=== PATIENT | male | born 1945 | race Caucasian/White ===

== ENCOUNTER 2017-05-23 22:31 | Emergency (ER) | payer OTHER, MEDICARE ==
--- NOTE | 2017-05-23 23:00 | EDPHY ---
H & P Stated Complaint: fell down stairs + loc, mutiple injury, on blood thinners HPI/ROS: HPI CHIEF COMPLAINT: Fall down stairs, on Xarelto, positive LOC, limited trauma HISTORY OF PRESENT ILLNESS: This patient very pleasant 71-year-old male, significant past medical history for AFib on Xarelto, hypertension, diabetes and obesity he presents emergency room after he fell down his stairs. He states that he had 2 martinis this evening he was going to bed his was handing him his medications through the railing of the stairs he bent over to pick the medications up any fell forward falling down 10 stairs. Carpeted would stairs. Landed at the bottom of tile floor. Positive LOC per he had head strike. He complains of a frontal headache and right lateral neck pain. Additionally left wrist pain. No other areas of injury. He denies chest pain shortness of breath. He denies abdominal pain. Denies lower back pain. Past Medical History: AFib on Xarelto, hypertension, obesity Past Surgical History: No recent surgery Social History: Denies daily use drugs alcohol tobacco products, had 2 martinis. Family History: Noncontributory ROS REVIEW OF SYSTEMS: A comprehensive 10 point review of systems is otherwise negative aside from elements mentioned in the history of present illness. Exam Constitutional triage nursing summary reviewed, vital signs reviewed, awake/ alert. Vital signs noted. Error in the initial pulse ox of 30%. Eyes head/neck: Abrasions to the left forehead, left cheek, no significant hematoma. In cervical collar: No midline cervical spine pain. No step-offs. No crepitus. Mild tenderness palpation right lateral neck. normal conjunctivae and sclera, EOMI, PERRLA. HENT oropharynx: This is a very small 1 cm intraoral upper left-sided lip laceration. normal inspection, atraumatic, moist mucus membranes, no epistaxis , neck supple/ no meningismus, no raccoon eyes. Respiratory clear to auscultation bilaterally, normal breath sounds, no respiratory distress, no wheezing. Cardiovascular rate normal, regular rhythm, no murmur, no edema, distal pulses normal. Gastrointestinal soft, non-tender, no rebound, no guarding, normal bowel sounds, no distension, no pulsatile mass. Genitourinary no CVA tenderness. Musculoskeletal no midline vertebral tenderness, full range of motion, no calf swelling, no tenderness of extremities, no meningismus, good pulses, neurovascularly intact. Nontender to palpation left lateral wrist ulnar side. Neurovascular intact. Skin abrasions to the left anterior leg, pink, warm, & dry, no rash, skin atraumatic. Neurologic awake, alert and oriented x 3, AAOx3, moves all 4 extremities equally, motor intact, sensory intact, CN II-XII intact, normal cerebellar, normal vision, normal speech. Psychiatric normal mood/affect. Heme/Lymph/Immune no lymphadenopathy. Differential Diagnosis: Includes but is not limited to in a particular order, intracranial bleed, subdural, skull fracture, cervical spine injury, multiple contusions, wrist sprain, wrist contusion, wrist fracture, alcohol intoxication Medical Decision Making: Plan for this patient CT head and CT cervical spine for trauma. Chest x-ray. Left wrist x-ray. Check basic blood work including alcohol level. EKG. Troponin. Re-evaluation: ED CT scan head without contrast and cervical spine without contrast for trauma on Xarelto are negative for acute traumatic injury. Chest x-ray two view negative for acute cardiopulmonary disease. Left wrist x-ray. This shows a triquetral fracture. 1214: This patient's upper lip intraorally has a very small less than 1 cm lip laceration. It does not require any suture repair. I did go over patient's CT scan results and x-rays with the patient. He understands to have the wrist fracture followed up with Orthopedics. He has been placed in a sugar-tong splint for comfort. Additionally I did give him his return precautions understands return emergency room if there is any worsening symptoms includes worsening headache, vomiting questions or concerns. EKG interpretation by me on record in [employer] system. Impression time of EKG 0004 this is AFib rate of 84. Otherwise unremarkable no acute ischemia. Similar to previous EKG dated 02/07/2016. Serum alcohol level noted to be 192. 0111: Patient ambulated well throughout the emergency room without difficulty. Stable gait. He is requesting be discharged home. Splint placed left wrist. Understands follow-up with Orthopedics for this. Return emergency if any worsening symptoms questions concerns he understands. Source: Patient - Personal History Current Tetanus Diphtheria and Acellular Pertussis (TDAP): Yes Tetanus Vaccine Date: < 10 years - Medical/Surgical History Hx Asthma: No Hx Chronic Respiratory Disease: No Hx Diabetes: Yes Hx Cardiac Disease: Yes Hx Renal Disease: No Hx Cirrhosis: No Hx Alcoholism: No Hx HIV/AIDS: No Hx Splenectomy or Spleen Trauma: No Other PMH: AFIB,HTN, DM, tendon repair, neck pain - Social History Smoking Status: Former smoker Constitutional: Initial Vital Signs Temperature (C) 36.5 C 05/23/17 22:41 Heart Rate 77 05/23/17 22:41 Respiratory Rate 20 05/23/17 22:41 Blood Pressure 141/85 H 05/23/17 22:41 O2 Sat (%) 30 L 05/23/17 22:41 O2 Delivery Mode Nasal Cannula O2 (L/minute) 2 Allergies/Adverse Reactions: No Known Allergies Allergy (Verified 05/23/17 22:41) Home Medications: Medication Instructions Recorded Ezetimibe/Simvastatin [Vytorin 1 each PO HS 04/17/11 10-20 mg Tablet] Losartan/Hydrochlorothiazide 1 each PO DAILY 04/17/11 [Losartan-Hctz 100-25 mg Tab] Potassium Cl [Klor-Con 10 meq (RX)] 10 meq PO DAILY 04/17/11 Rivaroxaban [Xarelto 10mg (*)] 20 mg PO HS 07/27/13 ALISKIREN HEMIFUMARATE [Tekturna 300 mg PO DAILY 02/06/16 300 mg] Calcium Carbonate [Tums 500MG (*)] 1,500 mg PO DAILY 02/06/16 Canagliflozin [Invokana] 100 mg PO DAILY 02/06/16 Finasteride [Proscar 5 MG (*)] 5 mg PO HS 02/06/16 Herbals/Supplements -Info Only 1 ea PO DAILY 02/06/16 Multivitamins [Multivitamin (*)] 1 each PO DAILY 02/06/16 Omeprazole [Prilosec 20 mg] 20 mg PO DAILY 02/06/16 amLODIPine BESYLATE [Norvasc 5 mg 5 mg PO HS 02/06/16 (*)] Insulin Glargine [Lantus 100 50 units SC HS 02/07/16 UNITS/ML (*)] Insulin Glargine [Lantus 100 50 units SC HS #0 ml 02/07/16 UNITS/ML (*)] Insulin Lispro [Humalog Kwikpen 9 - 12 unit SQ TIDMEAL 02/07/16 U-100] Medical Decision Making - Diagnostics Imaging Results: Imaging Impressions Cervical Spine CT 05/23/17 23:06 Impression: 1. No acute posttraumatic findings. If there is persistent pain or neurologic deficit, consider MRI and/or flexion and extension views if clinically indicated. 2. Multilevel degenerative change as above, with spondylolisthesis and moderate to severe spinal canal narrowing from C4 through C7. Findings discussed with Luis Menchaca MD 05/23/2017 at 23:51. Chest X-Ray 05/23/17 23:06 Impression: 1. No acute posttraumatic findings 2. Cardiomegaly without failure. Head CT 05/23/17 23:06 impression: 1. Minimal subcutaneous emphysema anterior to the maxilla, suggesting laceration , with no acute intracranial findings. 2. Diffuse cerebral atrophy with periventricular and subcortical low attenuation consistent with chronic microvascular ischemic gliosis. 3. Additional findings as above. Findings discussed with Luis Menchaca MD 05/23/2017 at 23:51. Wrist X-Ray 05/23/17 23:06 Impression: 1. Triquetral avulsion fracture. 2. Degenerative change and erosions as above. Findings discussed with Anny de oliveira for Luis Menchaca MD 2016 at 0:06. - Data Points Laboratory Results: Laboratory Results 05/23/17 23:13 05/23/17 23:13 05/23/17 05/23/17 05/23/17 23:13 23:13 23:13 WBC 8.47 10^3/uL 10^3/uL (3.80-9.50) RBC 5.29 10^6/uL 10^6/uL (4.40-6.38) Hgb 18.1 g/dL H g/dL (13.7-17.5) Hct 49.3 % % (40.0-51.0) MCV 93.2 fL fL (81.5-99.8) MCH 34.2 pg H pg (27.9-34.1) MCHC 36.7 g/dL g/dL (32.4-36.7) RDW 13.2 % % (11.5-15.2) Plt Count 194 10^3/uL 10^3/uL (150-400) MPV 10.1 fL fL (8.7-11.7) Neut % (Auto) 51.7 % % (39.3-74.2) Lymph % (Auto) 37.0 % % (15.0-45.0) [place] % (Auto) 9.0 % % (4.5-13.0) Eos % (Auto) 1.4 % % (0.6-7.6) Baso % (Auto) 0.4 % % (0.3-1.7) Nucleat RBC Rel Count 0.0 % % (0.0-0.2) Absolute Neuts (auto) 4.39 10^3/uL 10^3/uL (1.70-6.50) Absolute Lymphs (auto) 3.13 10^3/uL H 10^3/uL (1.00-3.00) Absolute Monos (auto) 0.76 10^3/uL 10^3/uL (0.30-0.80) Absolute Eos (auto) 0.12 10^3/uL 10^3/uL (0.03-0.40) Absolute Basos (auto) 0.03 10^3/uL 10^3/uL (0.02-0.10) Absolute Nucleated RBC 0.00 10^3/uL 10^3/uL (0-0.01) Immature Gran % 0.5 % % (0.0-1.1) Immature Gran # 0.04 10^3/uL 10^3/uL (0.00-0.10) PT 14.1 SEC SEC (12.0-15.0) INR 1.10 (0.83-1.16) APTT 29.4 SEC SEC (23.0-38.0) Sodium 140 mEq/L mEq/L (134-144) Potassium 3.6 mEq/L mEq/L (3.5-5.2) Chloride 99 mEq/L mEq/L (97-110) Carbon Dioxide 24 mEq/l mEq/l (22-31) Anion Gap 17 mEq/L H mEq/L (8-16) BUN 17 mg/dL mg/dL (7-23) Creatinine 1.0 mg/dL mg/dL (0.7-1.3) Estimated GFR > 60 Glucose 207 mg/dL H mg/dL (70-100) Calcium 9.6 mg/dL mg/dL (8.5-10.4) Troponin I < 0.012 ng/mL ng/mL (0.000-0.034) Ethyl Alcohol 192 mg/dL H mg/dL (0-10) Medications Given: Discontinued Medications Sodium Chloride (Ns) 1,000 mls @ 0 mls/hr IV EDNOW ONE; Wide Open PRN Reason: Protocol Stop: 05/23/17 23:07 Last Admin: 05/24/17 00:06 Dose: 1,000 mls Departure - Departure Disposition: Home, Routine, Self-Care Clinical Impression: Fall Qualifiers: Encounter type: initial encounter Qualified Code(s): W19.XXXA - Unspecified fall, initial encounter Contusion Qualifiers: Encounter type: initial encounter Contusion area: head Contusion of head detail : periocular area Laterality: left Qualified Code(s): S00.12XA - Contusion of left eyelid and periocular area, initial encounter Wrist fracture Qualifiers: Encounter type: initial encounter Fracture type: closed Laterality: left Qualified Code(s): S62.102A - Fracture of unspecified carpal bone, left wrist, initial encounter for closed fracture Alcohol intoxication Qualifiers: Complication of substance-induced condition: uncomplicated Qualified Code(s): F10.920 - Alcohol use, unspecified with intoxication, uncomplicated Lip laceration Qualifiers: Encounter type: initial encounter Qualified Code(s): S01.511A - Laceration without foreign body of lip, initial encounter Condition: Good Instructions: Wrist Fracture in Adults (ED), Contusion in Adults (ED), Fall Prevention (ED) Referrals: NONE *PRIMARY CARE P,. [Primary Care Provider] - As per Instructions Hal Baxter MD [Medical Doctor] - As per Instructions
[2017-05-23] MEDS ORDERED: NS 1,000 ML IV ONE (23:06)
[2017-05-23 23:25] LABS: % IMMATURE GRANULYOCYTES 0.5 % (0.0-1.1); ABSOLUTE IMMATURE GRANULOCYTES 0.04 10^3/uL (0.00-0.10); ADD DIFF? NO; ADD MORPH? NO; ADD SCAN? NO; ATYPICAL LYMPHOCYTE FLAG 0 (0-99); FRAGMENT RBC FLAG 0 (0-99); HEMATOCRIT 49.3 % (40.0-51.0); HEMOGLOBIN 18.1 g/dL (13.7-17.5); LEFT SHIFT FLG 0 (0-99); LIPEMIA HEMOLYSIS FLAG 90 (0-99); MEAN CELL HEMOGLOBIN 34.2 pg (27.9-34.1); MEAN CELL HEMOGLOBIN CONCENTR. 36.7 g/dL (32.4-36.7); MEAN CELL VOLUME 93.2 fL (81.5-99.8); MEAN PLATELET VOLUME 10.1 fL (8.7-11.7); PLATELET CLUMPS FLAG 0 (0-99); PLATELET COUNT 194 10^3/uL (150-400); RED BLOOD CELL COUNT 5.29 10^6/uL (4.40-6.38); RED CELL DISTRIBUTION WIDTH 13.2 % (11.5-15.2)
[2017-05-23 23:34] LABS: INR 1.1 (0.83-1.16); PROTIME(PATIENT) 14.1 SEC (12.0-15.0)
[2017-05-23 23:35] LABS: APTT 29.4 SEC (23.0-38.0)
[2017-05-23 23:38] LABS: ANION GAP 17 mEq/L (8-16); CALCIUM 9.6 mg/dL (8.5-10.4); CARBON DIOXIDE 24 mEq/l (22-31); CHLORIDE 99 mEq/L (97-110); ETHANOL SERUM 192 mg/dL (0-10); GLOMERULAR FILTRATION RATE > 60; GLUCOSE 207 mg/dL (70-100); POTASSIUM 3.6 mEq/L (3.5-5.2); SODIUM 140 mEq/L (134-144)
[2017-05-23 23:49] LABS: TROPONIN I < 0.012 ng/mL (0.000-0.034)
[2017-05-24 00:50] VITALS: RESP 18; O2SAT 96
[2017-05-24 01:19] VITALS: BP 131/70; PULSE 82; TEMP 98.6
--- NOTE | 2017-05-24 10:03 | CPEKG ---
Heart Rate: 84 RR Interval: 714 QRSD Interval: 84 QT Interval: 356 QTC Interval: 421 QRS [place]: -33 T Wave [place]: 118 EKG Severity - ABNORMAL ECG - EKG Impression: ATRIAL FIBRILLATION EKG Impression: PROBABLE INFERIOR INFARCT, AGE INDETERMINATE EKG Impression: LATERAL LEADS ARE ALSO INVOLVED Electronically Signed By: Bettina Montano 25-May-2017 17:21:55
== END 2017-05-24 01:20 | disposition home or self-care (01) ==
DX: S62.102A Fracture of unspecified carpal bone, left wrist, initial encounter for closed fracture (principal); S01.511A Laceration without foreign body of lip, initial encounter; F10.920 Alcohol use, unspecified with intoxication, uncomplicated; I10 Essential (primary) hypertension; E11.9 Type 2 diabetes mellitus without complications; E86.9 Volume depletion, unspecified; Z79.01 Long term (current) use of anticoagulants; Z87.891 Personal history of nicotine dependence; Z79.4 Long term (current) use of insulin; W10.9XXA Fall (on) (from) unspecified stairs and steps, initial encounter; Y92.002 Bathroom of unspecified non-institutional (private) residence as the place of occurrence of the external cause
CPT/HCPCS: G0480

== ENCOUNTER 2017-05-25 12:04 | Observation (INO) | payer OTHER, MEDICARE ==
--- NOTE | 2017-05-25 12:55 | EDPHY ---
H & P Stated Complaint: seen friday for fall/epistaxis on blood thinners HPI/ROS: CHIEF COMPLAINT: Nosebleed HISTORY OF PRESENT ILLNESS: The patient is an anticoagulated 71 y/o male complaining of a nosebleed today, which worsened around 1.5 hours ago. He uses a CPAP at night, which he believes may have aggravated the nosebleed. He was seen in this ED on Friday, 2 days ago , after he fell down several stairs. Due to the fall he has a left triquetral avulsion; he currently has a splint in place on his left forearm. Due to the residual pain from the fall, he took 3 Advil today. Denies chest pain, shortness of breath, weakness, fever or other pertinent symptoms. Prior medical records reviewed including ED visit with Dr. Menchaca on 05/23/17. REVIEW OF SYSTEMS: A ten point review of systems was performed and is negative with the exception of the items mentioned in the HPI. Past medical history: AFib, on Xarelto Hypertension Diabetes Obesity Past surgical history: Denies Family history: Noncontributory Social history: at bedside No daily alcohol, tobacco, or drug use Lives in [place], [place] Retired, worked in mergers and acquisitions. General Appearance: Alert. Vital signs reviewed. Blood pressure 185/92, heart rate 105, respiratory rate 22. Eyes: Pupils equal and round, no conjunctival injection, no discharge. Anicteric. ENT, Mouth: Mucous membranes are moist, no oropharyngeal erythema or edema. Blood in the posterior oropharynx. He had a clamp in place with tissue in his right nostril. This was removed by me. Active bleeding from the right naris-- several sites of bleeding identified.. Neck: No lymphadenopathy, supple. Respiratory: Lungs are clear to auscultation; no wheezes, rales, or rhonchi. Cardiovascular: Irregularly irregular; no murmur, rub, or gallop. Skin: Warm and dry, no rashes on exposed skin, normal color. Back: Nontender to palpation over the thoracolumbar spine. No CVAT. Extremities: Left arm splint in place. Neurological: Alert and oriented. Moving all four extremities easily and equally. - Personal History Current Tetanus/Diphtheria Vaccine: Yes Tetanus Vaccine Date: < 10 years - Medical/Surgical History Hx Asthma: No Hx Chronic Respiratory Disease: No Hx Diabetes: Yes Hx Cardiac Disease: Yes Hx Renal Disease: No Hx Cirrhosis: No Hx Alcoholism: No Hx HIV/AIDS: No Hx Splenectomy or Spleen Trauma: No Other PMH: AFIB,HTN, DM, tendon repair, neck pain - Social History Smoking Status: Former smoker Constitutional: Initial Vital Signs Temperature (C) 36.5 C 05/25/17 12:33 Heart Rate 104 H 05/25/17 12:33 Respiratory Rate 22 H 05/25/17 12:33 Blood Pressure 185/92 H 05/25/17 12:33 O2 Sat (%) 94 05/25/17 12:33 O2 Delivery Mode Room Air Allergies/Adverse Reactions: No Known Allergies Allergy (Verified 05/25/17 12:32) Home Medications: Medication Instructions Recorded Losartan/Hydrochlorothiazide 1 each PO DAILY 04/17/11 [Losartan-Hctz 100-25 mg Tab] Potassium Cl [Klor-Con 10 meq (RX)] 10 meq PO DAILY 04/17/11 Rivaroxaban [Xarelto 10mg (*)] 20 mg PO HS 07/27/13 ALISKIREN HEMIFUMARATE [Tekturna 300 mg PO DAILY 02/06/16 300 mg] Calcium Carbonate [Tums 500MG (*)] 1,500 mg PO DAILY 02/06/16 Canagliflozin [Invokana] 100 mg PO DAILY 02/06/16 Finasteride [Proscar 5 MG (*)] 5 mg PO HS 02/06/16 Herbals/Supplements -Info Only 1 ea PO DAILY 02/06/16 Multivitamins [Multivitamin (*)] 1 each PO DAILY 02/06/16 Omeprazole [Prilosec 20 mg] 20 mg PO DAILY 02/06/16 amLODIPine BESYLATE [Norvasc 5 mg 5 mg PO HS 02/06/16 (*)] Insulin Glargine [Lantus 100 50 units SC HS #0 ml 02/07/16 UNITS/ML (*)] Insulin Lispro [Humalog Kwikpen 0 unit SQ TIDMEAL PRN 02/07/16 U-100] Medical Decision Making Procedures: Procedure: Epistaxis control. Indication: nosebleed not controlled by direct pressure. Risks, benefits, alternatives discussed with patient and consent obtained. The right nares was treated with cotton ball soaked in Afrin. Bleeding appeared to becoming from from several sites which could be visualized anteriorly. The patient was treated with a 5.5 cm anterior rhino stat. However, he continued with bleeding. The rhino stat was removed, silver nitrate cautery was attempted but not successful and an anterior/ posterior rhino stat was placed. This appeared to control the bleeding from the right nostril. However he also had some bleeding on the left. A cocaine soaked cotton ball was placed into the left nostril with subsequent hemostasis. The patient tolerated the procedure well. The procedure was performed by myself, Dr. Montano. ED Course/Re-evaluation: The patient is an anticoagulated 71 y/o male complaining of a nose bleed today, that worsened 1.5 hours ago. He was seen in this ED on Friday, 2 days ago, after he fell and had an avulsion fracture in his left triquetral. He took 3 Advil today for the pain from his fall. 1317: Reassessed patient and began to perform epistaxis control. 1332: Reassessed patient and continued to work on his epistaxis control. I am unable to find the source of the bleeding. A pack was placed. 1405: Reassessed patient and continued to work on his epistaxis control. 1502: Reassessed patient to see how his pack is holding. I took the packing out of his left nostril, and I believe he bleed has stopped in this nostril. The anterior and posterior pack in his right nostril are still in place. 1527: Consulted with Dr. Gunderson about admission for this patient. He has anterior posterior nasal packing in place. He normally uses CPAP at night. I do not feel that he can safely return home. 1539: Consulted with IVONE Hyde, ENT, he agrees to follow this patient during his admission. 1604: Reassessed patient and discussed plan for admission. Patient and his are comfortable with this plan. Differential Diagnosis: Considered a differential diagnosis of epistaxis including but not limited to hypertension, anticoagulant medications, coagulopathy, and nasal trauma. - Data Points Laboratory Results: Laboratory Results 05/25/17 15:00 05/25/17 05/25/17 05/25/17 15:00 15:00 14:55 WBC 9.84 10^3/uL H 10^3/uL REJ (3.80-9.50) RBC 5.34 10^6/uL 10^6/uL REJ (4.40-6.38) Hgb 17.7 g/dL H g/dL REJ (13.7-17.5) Hct 49.4 % % REJ (40.0-51.0) MCV 92.5 fL fL REJ (81.5-99.8) MCH 33.1 pg pg REJ (27.9-34.1) MCHC 35.8 g/dL g/dL REJ (32.4-36.7) RDW 13.3 % % REJ (11.5-15.2) Plt Count 177 10^3/uL 10^3/uL REJ (150-400) MPV 9.8 fL fL REJ (8.7-11.7) Neut % (Auto) 71.6 % % REJ (39.3-74.2) Lymph % (Auto) 15.2 % % REJ (15.0-45.0) [place] % (Auto) 12.1 % % REJ (4.5-13.0) Eos % (Auto) 0.2 % L % REJ (0.6-7.6) Baso % (Auto) 0.2 % L % REJ (0.3-1.7) Nucleat RBC Rel Count 0.0 % % REJ (0.0-0.2) Absolute Neuts (auto) 7.04 10^3/uL H 10^3/uL REJ (1.70-6.50) Absolute Lymphs (auto) 1.50 10^3/uL 10^3/uL REJ (1.00-3.00) Absolute Monos (auto) 1.19 10^3/uL H 10^3/uL REJ (0.30-0.80) Absolute Eos (auto) 0.02 10^3/uL L 10^3/uL REJ (0.03-0.40) Absolute Basos (auto) 0.02 10^3/uL 10^3/uL REJ (0.02-0.10) Absolute Nucleated RBC 0.00 10^3/uL 10^3/uL REJ (0-0.01) Immature Gran % 0.7 % % REJ (0.0-1.1) Immature Gran # 0.07 10^3/uL 10^3/uL REJ (0.00-0.10) PT 17.0 SEC H SEC (12.0-15.0) INR 1.39 H (0.83-1.16) APTT 32.3 SEC SEC (23.0-38.0) Medications Given: Hydrocodone Bitart/Acetaminophen ([place] 5/325) 1 - 2 tab PO Q4HRS PRN PRN Reason: Pain, Moderate Able to Take PO Stop: 06/04/17 16:54 Last Admin: 05/25/17 17:42 Dose: 2 tab Insulin Human Lispro (Humalog Lispro) 10 - 22 unit SC TIDMEAL PRN PRN Reason: PER PT'S SLIDING SCALE Stop: 11/21/17 17:29 Last Admin: 05/25/17 18:21 Dose: 15 iunits Discontinued Medications Cocaine HCl (Cocaine Hcl) 1 heriberto TP EDNOW ONE Stop: 05/25/17 14:23 Last Admin: 05/25/17 14:22 Dose: 1 btl Departure - Departure Disposition: [facility] Inpatient Acute Clinical Impression: Epistaxis Condition: Fair Report Scribed for: Bettina Montano Report Scribed by: Angi Damon Date of Report: 05/25/17 Time of Report: 12:59 Physician Review and Approval Statement: 05/25/17 12:55 Portions of this note were transcribed by the medical office secretary. I, Dr. Bettina Montano, personally performed the history, physical exam, and medical decision- making; and confirmed the accuracy of the information in the transcribed note.
[2017-05-25] MEDS ORDERED: SILVER NITRATE APPLICATOR 1 APPL TP ONE (12:56)
[2017-05-25] MEDS ORDERED: OXYMETAZOLINE 30 ML NASAL SPRAY ONE (12:56)
[2017-05-25] MEDS ORDERED: COCAINE HCL 4% 4 ML BTL TP ONE ×2 (14:20→14:22)
[2017-05-25 15:20] LABS: % IMMATURE GRANULYOCYTES 0.7 % (0.0-1.1); ABSOLUTE IMMATURE GRANULOCYTES 0.07 10^3/uL (0.00-0.10); ADD DIFF? NO; ADD MORPH? NO; ADD SCAN? NO; ATYPICAL LYMPHOCYTE FLAG 0 (0-99); FRAGMENT RBC FLAG 0 (0-99); HEMATOCRIT 49.4 % (40.0-51.0); HEMOGLOBIN 17.7 g/dL (13.7-17.5); LEFT SHIFT FLG 0 (0-99); LIPEMIA HEMOLYSIS FLAG 90 (0-99); MEAN CELL HEMOGLOBIN 33.1 pg (27.9-34.1); MEAN CELL HEMOGLOBIN CONCENTR. 35.8 g/dL (32.4-36.7); MEAN CELL VOLUME 92.5 fL (81.5-99.8); MEAN PLATELET VOLUME 9.8 fL (8.7-11.7); PLATELET CLUMPS FLAG 0 (0-99); PLATELET COUNT 177 10^3/uL (150-400); RED BLOOD CELL COUNT 5.34 10^6/uL (4.40-6.38); RED CELL DISTRIBUTION WIDTH 13.3 % (11.5-15.2)
[2017-05-25 15:32] LABS: APTT 32.3 SEC (23.0-38.0); INR 1.39 (0.83-1.16)
[2017-05-25] MEDS ORDERED: ONDANSETRON 4 MG/2 ML VIAL IVP PRN (16:49)
[2017-05-25] MEDS ORDERED: ZOLPIDEM TARTRATE 5 MG TAB PO PRN (16:49)
[2017-05-25] MEDS ORDERED: ACETAMINOPHEN 325 MG TAB PO PRN (16:49)
[2017-05-25] MEDS ORDERED: ONDANSETRON DISINTEGRATING 4 MG TAB PO PRN (16:49)
[2017-05-25] MEDS ORDERED: INSULIN LISPRO 100 UNIT/ML SC PRN (17:30)
[2017-05-25] MEDS: HYDROCODONE/APAP 5/325 TAB PO PRN ×2 (17:42→22:09)
--- NOTE | 2017-05-25 17:47 | GHP ---
[f rep st] HISTORY AND PHYSICAL DATE OF ADMISSION: 05/25/2017 CHIEF COMPLAINT: Nose bleed. HISTORY OF PRESENT ILLNESS: The patient is a 71-year-old, white male who was in this emergency depar tment 2 days ago after he fell. He was reaching over a banister to get something from his and [place]. He is not sure if he tripped or briefly got lightheaded. In this ER 2 days ago, he was treated for a broken hand with the splint and referred for outpatient followup with orthopedics later in the week. He was at home in a lot of pain and did not have any pain medications and, despite the fact t hat he usually avoids antiinflammatory medications because he takes Xarelto, he did take 3 ibuprofen tablets at 5:30 am this morning. Several hours later, he had a nosebleed and could not get it to sto . He has been on Xarelto for about 3 years because of atrial fibrillation. He has had occasional n osebleeds before but has never had to come to the emergency department for them. This time in the ER, it looks quite a while to get the bleeding stopped. He has nasal packing in the right nostril. The re is blood in the left nostril as well, but it had stopped bleeding without packing. Because he is on a blood thinner and because he uses CPAP at night and there is some question as to his oxygen stat us tonight with nasal packing, and because he is at risk for continued bleeding on the other side, he is going to be monitored in the hospital overnight. At the present time, he does not have any acute complaints. He has significant hand pain which he ca n tolerate but thinks he would do better if he had a pain medication to use on a p.r.n. basis. PAST MEDICAL HISTORY: 1. Atrial fibrillation which is chronic. He has been on Xarelto for the past 3 years. 2. Hypertension. 3. Type 2 diabetes for which he takes Invokana, Lantus and Humalog insulin. 4. Obstructive sleep apnea for which he has been treated with CPAP. He has been wearing it fairly r egularly for the past 3 months. He does not notice any subjective improvement in the quality of his sleep or the quality of his daytime energy level with this treatment. MEDICATIONS: Aliskiren 300 mg daily. Amlodipine 5 mg daily. Canagliflozin 100 mg daily. Finasteri de 5 mg at bedtime. Lantus insulin 50 units at bedtime. Humalog insulin 15-21 units three times geraldine y before meals. Losartan HCT 100/25 daily. Multiple vitamin daily. Omeprazole 20 mg daily. Potassi um chloride 10 mEq daily. Ambien 10 mg at h.s. p.r.n. (rare). Melatonin 1.5 mg at h.s. recently. SOCIAL HISTORY: Lives at home with his . They spend much of the winter in [place], [place]. He does not smoke. FAMILY HISTORY: Noncontributory in this 71-year-old gentleman. REVIEW OF SYSTEMS: CONSTITUTIONAL: Denies recent weight change or fever. NEUROLOGIC: Denies heada issac. ENT: See HPI. RESPIRATORY: Denies asthma, cough, shortness of breath or wheezing. CARDIOVASCUL AR: No chest pain or heart palpitations. GI: No nausea, diarrhea or constipation. : Denies prob lems urinating. EXTREMITIES: Denies musculoskeletal pain or arthralgias. NEUROLOGIC: Denies focal n eurologic deficits. SKIN: He has some abrasions on the face from his fall 2 nights ago but nothing worrisome and no new rashes. PHYSICAL EXAMINATION: GENERAL: He is an overweight, white male sitting comfortably on the edge of [facility] in the emergency department. VITAL SIGNS: Blood pressure was 185/92 on arrival a nd is now 168/101. Heart rate 92, oxygen saturation 96% on room air. Temperature 37.1. HEENT: Eyes : Pupils equal, round, react to light. Conjunctivae are pink. Face: He has some scabs on his nose and cheeks but no serious areas of swelling or tenderness. He has a tube from a right nasal packing extending from the right nostril. Throat, mouth and oropharynx are benign. NECK: Supple without ad enopathy or thyromegaly. LUNGS: Clear. HEART: Irregularly irregular. ABDOMEN: Obese, soft. Non tender. EXTREMITIES: No edema. SKIN: Warm and dry. NEUROLOGIC: He is alert and oriented. MUSCUL OSKELETAL: His left hand is in a splint which is in a sling. He is able to move all his fingers. IMPRESSION: 1. Epistaxis. He has nasal packing on 1 side and dried blood in the other nostril and is on a blood thinner. He will be monitored overnight. He has obesity and sleep apnea, and is a fairly significa nt risk for oxygen desaturation, especially if any further bleeding occurs. Dr. Montano in the emerge ncy department has notified [facility] Th[facility] doctor who can see him tomorrow. 2. Diabetes. His hemoglobin A1c in March was 7.5. He manages this himself with Humalog pre meals plus Lantus and Invokana. We will continue his usual sliding scale in the hospital. 3. Atrial fibrillation on Xarelto. Stable from a cardiovascular standpoint. Hold Xarelto in the se tting of recent bleeding. 4. Obstructive sleep apnea. He will be unable to use his continuous positive airway pressure tonigh t. Symptomatic or he does not notice a lot of difference when he does not have it, so I do not think it will be too big a deal to not use it while he has this nasal packing in place. 5. Hypertension. We will try to resume his usual blood pressure medications. /[id number]/MODL
[2017-05-25] MEDS ORDERED: MELATONIN 3 MG TAB PO SCH (21:00)
[2017-05-25] MEDS ORDERED: INSULIN GLARGINE 100 UNITS/ML SYRINGE SC SCH (21:00)
[2017-05-25] MEDS ORDERED: amLODIPine BESYLATE 5 MG TAB PO SCH (21:00)
[2017-05-25] MEDS ORDERED: FINASTERIDE 5 MG TAB PO SCH (21:00)
[2017-05-26] MEDS: HYDROCODONE/APAP 5/325 TAB PO PRN (02:13)
[2017-05-26 07:33] VITALS: RESP 16
[2017-05-26] MEDS ORDERED: PANTOPRAZOLE SODIUM 40 MG TAB PO SCH (09:00)
[2017-05-26] MEDS ORDERED: ALISKIREN HEMIFUMARATE 150 MG TAB PO SCH (09:00)
[2017-05-26] MEDS ORDERED: Canagliflozin [Invokana] 100 MG PO SCH (09:00)
[2017-05-26] MEDS ORDERED: LOSARTAN/HCTZ 50/12.5 1 TAB PO SCH (09:00)
[2017-05-26] MEDS ORDERED: MULTIVITAMINS 1 EACH TAB PO SCH (09:00)
[2017-05-26] MEDS ORDERED: CALCIUM CARBONATE 500 MG CHEWABLE TAB PO SCH (09:00)
[2017-05-26] MEDS ORDERED: POTASSIUM CL 10 MEQ TAB PO SCH (09:00)
[2017-05-26] MEDS ORDERED: PNEUMOC 13-VAL CONJ-DIP CRM/PF 0.5 ML SYR IM ONE (09:40)
[2017-05-26] MEDS ORDERED: FLU VACC QS 2017-18 (3YR+)/PF 0.5 ML SYR (FLUARIX QUAD) IM ONE (09:40)
--- NOTE | 2017-05-26 10:09 | GCON ---
[f rep st] CONSULTATION INPATIENT CONSULT NOTE HISTORY OF PRESENT ILLNESS: This is a 71-year-old male who was admitted to the hospital on May 052016 for complaints of a nosebleed. The patient suffered from a fall on Tuesday, May 23, 2017 and suffered an arm injury. He currently takes Xarelto on a daily basis. He states that yesterday, due to his increase in arm pain, he took 3 ibuprofen. Shortly after that, he noted acute onset of ep istaxis. The patient notes that he has had epistaxis in the past but has never required packing. Gi shanna the patient's need for CPAP and other comorbidities, decision was made to admit the patient to [facility] hospitalist for further observation. ENT is consulted for evaluation. PHYSICAL EXAM: GENERAL: This is a 71-year-old man in no acute distress. GENERAL APPEARANCE: He do es have minor facial abrasions without any bleeding. HEENT: Nose anterior-posterior pack in the rig ht side without continued anterior bleeding. Left naris shows significantly dry nasal mucosa. The p atient is currently wearing nasal cannula. Oropharynx with moist mucous membranes. Very mild fresh red blood in the posterior oropharynx. ASSESSMENT AND PLAN: This is a 71-year-old male, admitted to the hospitalist for management of multi ple medical comorbidities. He currently has an anterior-posterior Rapid Rhino in place in the right nares. He continues to have a very mild, slow trickle of blood in his oropharynx. I discussed with the patient that typically we like to leave packing in place for least 5 days when patients are on bl ood thinning medications. At this point, he is okay to be discharged home. I would recommend, if he will be discharged home, that he should be seen in our office today for packing adjustment. I did d iscuss this with the patient. If, due to other medical comorbidities, the patient will be left in ho use for another day, I will return this afternoon to readjust the packing as needed. 1. I do recommend anti-staph coverage while packing in place. 2. If the patient is discharged from the hospital today, he should be seen in our office, in [address], today. The patient is not discharged please call our office at [phone] so that I can return to the bedside to adjust the packing to be sure the slow trickle of posterior oropharynx resolves. Thank you so much for allowing us to participate in the care this patient. If you have further quest ions, please do not hesitate to contact our office. /[id number]/MODL
[2017-05-26 11:59] VITALS: BP 126/86; PULSE 102; TEMP 97; O2SAT 94
--- NOTE | 2017-05-26 17:00 | ASDISCHSUM ---
Discharge Information Plan Status:Home with No Needs Medically Cleared to Leave:05/26/2017 Discharge Date:05/26/2017 02:00 PM CM D/C Disposition: ADT D/C Disposition:Home, Routine, Self-Care Projected Discharge Date:05/26/2017 12:00 AM Transportation at D/C: Discharge Delay Reason: Follow-Up Date:05/26/2017 12:00 AM Discharge Slot: Final Diagnosis: Placement Information Patient Contact Information Contact Name:POLY Relationship: Address:[address] City:[place] Alternate Phone: State/Zip Code:[place] [address] Email: Financial Information Financial Class: Primary Plan Desc:MEDICARE OUTPATIENT Primary Plan Number:[id number] Secondary Plan Desc:[employer]/M[employer] SUPPLEMENT Secondary Plan Number:[id number] Assessment Information Intervention Information Intervention Type:*FRITZ-Signed Date of Service:05/26/2017 10:17 AM Patient Type:Observation Staff Member:Cristine Sorto Hours: Discipline: Severity: Comment:
--- NOTE | 2017-05-26 17:56 | GDS ---
[f rep st] DISCHARGE SUMMARY DISCHARGE DIAGNOSIS: Epistaxis. HOSPITAL COURSE: The patient is a 71-year-old male who presented to the emergency with complaints of nosebleed. He was evaluated and treated for his condition in the emergency room. He has been admit samira for stabilization and closer monitoring. During this hospital course, he had an evaluation from [facility] Th[facility]. It was recommended that he be seen in the office for further therapy and manag ement. The patient will be discharged from the hospital, to follow up in Dr. Segura's office at 140 0. PENDING STUDIES: There are no pending studies. DISCHARGE MEDICATIONS: Please refer to EMR form. The patient's Xarelto was on hold at this time, an d he has been provided a prescription for [place] for his hand pain due to his recent trauma. FOLLOWUP: Will be with his primary care physician, Dr. Arley Stark, as well as Dr. Segura of [facility]. I have discussed the patient's disposition with his nurse. /[id number]/MODL
[2017-05-27] MEDS ORDERED: Herbals/Supplements -Info Only PO SCH (09:00)
== END 2017-05-26 14:00 | disposition home or self-care (01) ==
LOC: F3E 17:01
PROVIDERS: ADMIT Internal Medicine; ATTEND Internal Medicine
PROC: 2Y41X5Z Packing of Nasal Region using Packing Material (ICD-10-PCS; principal; 2017-05-25)
PROC: 3E09XGC Introduction of Other Therapeutic Substance into Nose, External Approach (ICD-10-PCS; principal; 2017-05-25)
DX: R04.0 Epistaxis (principal); I48.91 Unspecified atrial fibrillation; Z79.01 Long term (current) use of anticoagulants; S62.115D Nondisplaced fracture of triquetrum [cuneiform] bone, left wrist, subsequent encounter for fracture with routine healing; E11.9 Type 2 diabetes mellitus without complications; E66.09 Other obesity due to excess calories; Z68.37 Body mass index [BMI] 37.0-37.9, adult; G47.33 Obstructive sleep apnea (adult) (pediatric); Z23 Encounter for immunization
CPT/HCPCS: 30901; 30905; 90670; 90686; A4565; G0008; G0009; G0378; J1815; 85260-90